=== PATIENT | male | born 1990 | race Caucasian/White ===

== ENCOUNTER → 2021-11-11 | Day surgery (SDC) | payer BC ==
[~2021-11-11] MED LIST: CYCLOBENZAPRINE10 MG PO; NAPROSYN500 MG PO
== END | disposition home or self-care (01) ==
LOC: OR 11-04 13:00
DX: K40.90 Unilateral inguinal hernia, without obstruction or gangrene, not specified as recurrent (principal); F17.290 Nicotine dependence, other tobacco product, uncomplicated; Z20.822 Contact with and (suspected) exposure to COVID-19
CPT/HCPCS: C1713; C1781; J0690; J1100; J1170; J1885; J2001; J2250; J2405; J2704; J3010; J7030; J7120